=== PATIENT | female | born 1990 | race Caucasian/White ===

== ENCOUNTER → 2016-11-10 | Outpatient (CLI) | payer BC | LOC: BHSO 14:18 | DX: F33.1 Major depressive disorder, recurrent, moderate (principal) ==

== ENCOUNTER → 2017-02-14 | Outpatient (CLI) | payer BC | LOC: BHSO 13:20 | DX: F41.1 Generalized anxiety disorder (principal) ==

== ENCOUNTER → 2017-06-13 | Outpatient (CLI) | payer BC | LOC: BHSO 13:23 | DX: F41.1 Generalized anxiety disorder (principal) ==

== ENCOUNTER → 2017-09-19 | Outpatient (CLI) | payer BC | LOC: BHSO 13:20 | DX: F41.1 Generalized anxiety disorder (principal) | CPT/HCPCS: G0463 ==

== ENCOUNTER → 2018-01-02 | Outpatient (CLI) | payer BC | LOC: BHSO 14:21 | DX: F33.42 Major depressive disorder, recurrent, in full remission (principal) | CPT/HCPCS: G0463 ==

== ENCOUNTER → 2018-04-03 | Outpatient (CLI) | payer BC | LOC: BHSO 13:56 | DX: F33.42 Major depressive disorder, recurrent, in full remission (principal) ==

== ENCOUNTER → 2018-07-30 | Outpatient (CLI) | payer BC | LOC: BHSO 14:00 | DX: F33.42 Major depressive disorder, recurrent, in full remission (principal) | CPT/HCPCS: G0463 ==